=== PATIENT | male | born 1960 | race Caucasian/White ===

== ENCOUNTER 2023-05-25 14:47 | Outpatient (AMB) | payer BC, MEDICARE, SELFPAY ==
--- NOTE | 2023-05-25 15:01 | MHC.OFFVIS ---
Intake Vital Signs 05/25/23 15:06 Height 6 ft Weight 215 lb 3 oz BMI 29.2 BP 141/71 H Blood Pressure Location Lt brachial Position Sitting Pulse 87 Pulse Source Pulse Oximeter Pulse Oximetry (%) 97 Oxygen Delivery Method Room Air Intake Visit Reasons: Chronic Back Pain Intake Note: Pain today 11/08 Electrical Appliance Servicer Required: No Accompanied by: Self / Same As Patient Allergies No Known Allergies Allergy (Verified 05/25/23 15:05) HPI Chronic Back Pain HPI Details Patient is a 63 years old male with complex medical history as noted below and recent history of cervical spine surgery in April [address] Wade, previous 2 cervical spine surgeries, presents today for evaluation of low back pain with left sciatica for discussion of medical pain management with opioids. Patient reports he has tried Oxycodone, Dilaudid, Oxycontin in the past and currently is taking gabapentin and oxycodone. He states Dilaudid was most effective for his chronic pain syndrome but is no longer being prescribed by his current providers and was denied opioid program at [facility]. Back pain is localized to lower spine extending to his sacral area on the left and left hip and into his left lower extremity laterally and posteriorly. Reports numbness and tingling in his feet due to diabetic neuropathy, but more prominent in his left leg in his calf and toes. Patient also reports left hip feels bone on bone and increased pain with walking, weight bearing, bending, standing or changing positions. His symptoms are minimal while resting but cannot tolerate prolonged sitting. Denies any fever, bladder or bowel dysfunction, or saddle anesthesia. Reports bilateral lower extremity weakness, worse on the left. He is unable to raise his left leg due to chronic weakness. Patient states he was deemed non-surgical for additional back surgery to address his left sided sciatica. Most recent lumbar spine MRI completed [place] [facility] No imaging reports are available for review today. Reports frequent falls, uses cane or walker with ambulation. Patient reports he was recently started on insulin. Average blood sugars per Dexcomp monitor are 182-190. He has Watchman device in and has been off anti-coagulation. Patient has history of severe alcohol abuse and reports rare alcohol intake currently. Denies smoking or illicit drug use. He has tried marijuana edibles with minimal effect. Location Lower back on left side, radiates down left leg; left hip pain Duration Chronic pain >3 years, multiple falls Characteristics of symptom or complaint Aching, heavy, numbness, stabbing, sore, pins and needles Aggravating or associated factors Standing, walking, prolonged sitting, bending, changing positions, weather Relieving factors Oxycodone, dilaudid, oxycontin, gabapentin, Flexeril, tizanidine Treatment PT-2022, temporary helpful, neck surgeries x3 [facility] Medical History Stage 4 chronic kidney disease PVD (peripheral vascular disease) Pancytopenia Obstructive sleep apnea Major depression Macrocytic anemia Kidney lesion Insomnia Ingestion of toxic substance Hypothyroidism Hypokalemia Hypertension LINA (generalized anxiety disorder) Esophageal varices Hyperlipidemia Dyspnea on effort DM gastroparesis Diabetic neuropathy Diabetic foot ulcers Diabetes mellitus Cirrhosis Chronic ulcer of right foot due to diabetes mellitus Neck pain, chronic Anemia Alcohol use disorder, severe, dependence Abdominal pain A-fib Surgical History H/O discectomy H/O laminectomy History of hernia repair History of transmetatarsal amputation of right foot Social History Alcohol intake: current Alcohol intake frequency: holidays/special occasions only Patient Tobacco Use Status: Former Tobacco user Quit Date: 25 years ago Tobacco use type: Cigarette Substance Use Type Other:: CBD gummies Substance Use Frequency: Daily Review of Systems Const All systems reviewed & are unremarkable except as noted in HPI and below Physical Exam Vital Signs: Last Vital Signs Pulse 87 05/25/23 15:06 BP 141/71 H 05/25/23 15:06 Pulse Ox 97 05/25/23 15:06 Oxygen Delivery Method Room Air 05/25/23 15:06 BMI result Body Mass Index 29.2 General: Appears afebrile. Alert and oriented. Mood and affect appropriate. Follows and participates in conversation appropriately. Respiratory effort is unlabored. No cough. Able to transition from sit to stand unassisted. Ambulates with cane. Back/Spine/Pelvis Other: Limited lumbar ROM due to pain. TTP over paraspinals from L3-S1, worse on the left. Lumbar extension and flexion reproduces moderate pain. Painful facet loading bilaterally, left>right. Mild left hip groin pain with I/E hip rotations. Mild TTP to left GTB. Strength 5/5 right and 4/5 left hip flexion bilaterally. Mild sensation loss left lower extremity. Diminishes DTRs bilaterally. Unable to proceed with exam due to significant exacerbation of pain. Cervical Spine: loss of normal cervical lordosis, cervical muscular tenderness, Cervical spine scars present and No Cervical spine tenderness Thoracic/Lumbar Spine: thoracic and lumbar spine normal to inspection, No Thoracic/lumbar spine scar(s), Lasegue's sign positive on the left and diffuse, pain with thoraco-lumbar ROM, paraspinal muscle tenderness on the left greater than right, thoraco-lumbar ROM limited, No thoracic spinal tenderness and lumbar spinal tenderness Pelvis: buttock tenderness on the left Sacroiliac joints: on the right nontender and on the left tender to palpation Neuro Gait exam (Neuro): Antalgic gait present, Wide-based gait present and Assistive device used Motor exam (neuro): no tremor noted Psych Appearance: grossly normal Mental Status: mental status grossly normal Speech and movement: Normal speech and movement present Affect: normal affect Attitude: cooperative Thought process: Normal thought process present Thought content: Normal thought content present, suicidality (none), no hallucinations and Depressive thoughts present Insight: Good insight present (Psych) Judgement: Good judgement present (Psych) Results Reviewed Results Reviewed: No imaging reports are available for review. Assessment & Plan Assessment & Plan (1) Left hip pain: Code(s): M25.552 - Pain in left hip (2) Lumbar radiculopathy, chronic: Code(s): M54.16 - Radiculopathy, lumbar region (3) Muscle spasm of back: Code(s): M62.830 - Muscle spasm of back (4) Chronic low back pain: Code(s): M54.50 - Low back pain, unspecified; G89.29 - Other chronic pain (5) Lumbar degenerative disc disease: Code(s): M51.36 - Other intervertebral disc degeneration, lumbar region Plan Medical release request is sent [place] [facility] [place] and [facility] for Dr. Wade's Neurosurgery evaluation on radicular back pain. Patient reports he was deemed non-surgical for additional spine surgery to address his left leg symptoms. Most recent cervical spine surgery in April. Lumbar spine and left hip imaging to assess degree of degenerative changes, any subluxation, listhesis, compression fractures or pars defects. I have informed patient that we do not offer opioid prescribing at this time. We discussed neuromodulation with SCS vs ITDD trials and implant. Patient is interested in ITDD trial with [facility]. Will place referral for psychology clearance in anticipation of ITDD trial. Extensive discussion regarding the risks and benefits of SCS and ITDD trial and implant procedures and all questions were answered to patient satisfaction. Informational pamphlets provided to patient today. Refill provided for tizanidine and lidocaine patches. Patient is aware to avoid cyclobenzaprine while taking tizanidine and continue to monitor for any side effects. All questions and concerns have been answered and patient agreed with the plan. Follow up for xray/MRI review and sooner as needed. Orders: Orders XR lumbar spine 4V min 05/25/23 M25.552 - Pain in left hip, M54.16 - Radiculopathy, lumbar region, M54.50 - Low back pain, unspecified XR hip LT w [id number] 05/25/23 M25.552 - Pain in left hip, M54.16 - Radiculopathy, lumbar region, M54.50 - Low back pain, unspecified Medications: New tizanidine 2 mg PO TID 30 days 90 caps 0RF pain M25.552 - Pain in left hip, M54.16 - Radiculopathy, lumbar region, M54.50 - Low back pain, unspecified, M62.830 - Muscle spasm of back lidocaine 5% 1 patch topical DAILY 30 days 30 ea 0RF pain G89.29 - Other chronic pain, M51.36 - Other intervertebral disc degeneration, lumbar region, M54.16 - Radiculopathy, lumbar region, M54.50 - Low back pain, unspecified Coding Level of Care Code New Pt Level 4 (33699) Diagnoses Left hip pain M25.552 Lumbar radiculopathy, chronic M54.16 Muscle spasm of back M62.830 Chronic low back pain M54.50; G89.29 Lumbar degenerative disc disease M51.36
[2023-05-25 15:06] VITALS: BP 141/71; PULSE 87; O2SAT 97; BMI 29.2
== END 2023-05-25 15:45 | disposition home or self-care (01) ==
PROVIDERS: PCP Family Medicine; Referring Provider Nurse Practitioner Family; Visit Provider Nurse Practitioner Family
DX: M25.552 Pain in left hip (principal); M54.16 Radiculopathy, lumbar region; M62.830 Muscle spasm of back; M54.50 Low back pain, unspecified; G89.29 Other chronic pain; M51.36 Other intervertebral disc degeneration, lumbar region
CPT/HCPCS: 99204

== ENCOUNTER → 2023-05-25 14:47 | Outpatient (BNVA) | payer MEDICARE, BC, SELFPAY | PROVIDERS: PCP Family Medicine; Referring Provider Nurse Practitioner Family; Visit Provider Nurse Practitioner Family ==